=== PATIENT | male | born 1990 | race Caucasian/White ===

== ENCOUNTER 2018-08-17 07:29 | Emergency (ER) | payer BC ==
[~2018-08-17] VITALS: Ht 170.2 cm; Wt 73.1 kg
[2018-08-17 07:40] VITALS: BP 126/85; Ht 170.2 cm; Wt 73.1 kg
== END 2018-08-17 08:28 | disposition home or self-care (01) ==
LOC: ED 07:29
DX: S93.402A Sprain of unspecified ligament of left ankle, initial encounter (principal); X58.XXXA Exposure to other specified factors, initial encounter; Y93.89 Activity, other specified; Y92.89 Other specified places as the place of occurrence of the external cause; Y99.8 Other external cause status